=== PATIENT | female | born 1955 | race Caucasian/White ===

== ENCOUNTER → 2016-10-05 18:54 | Outpatient (CLI) | payer SELFPAY ==
[2016-10-05 20:09] LABS: % SATURATION 29 % (15-55); IRON 100 ug/dl (35-150); TOTAL IRON BIND CAPACITY 343 ug/dl (260-445); UNSAT IRON BIND CAPACITY 243 ug/dl (150-375)
== END | disposition home or self-care (01) ==
LOC: D.LABREF 18:54
PROVIDERS: Family Medicine
DX: D64.9 Anemia, unspecified (principal)

== ENCOUNTER → 2020-06-09 12:36 | Outpatient (CLI) | payer MEDICARE, OTHER ==
[~2020-06-09] VITALS: Ht 170.2 cm; Wt 74.5 kg
[2020-06-09 13:21] VITALS: BP 130/72; Ht 170.2 cm; Wt 74.5 kg
== END | disposition home or self-care (01) ==
LOC: D.OPS 12:00
PROVIDERS: ATTEND Family Medicine
DX: M81.0 Age-related osteoporosis without current pathological fracture (principal)